=== PATIENT | male | born 1950 | race Caucasian/White ===

== ENCOUNTER 2018-06-12 13:41 | Inpatient (IN) | payer MEDICARE ==
[~2018-06-12 13:41] MED LIST: ISOVUE-370 76%-LOCM 1 ML ONE
[2018-06-12 14:13] LABS: #Basophils 0.1 thou/uL (0.0-0.2); #Eosinphils 0.3 thou/uL (0.0-0.7); #Lymphocytes 1.7 thou/uL (1.20-3.40); #Neutrophils 4.6 thou/uL (1.40-6.50); %Lymphocytes 21.6 % (21.0-51.0); %Monocytes 13.5 % (0.0-10.0); %Neutrophils 59.9 % (42.0-75.0); Hemoglobin 13.1 g/dL (14.0-18.0); Mean Corpuscular HGB CONC 33.3 g/dL (32.0-36.0); Mean Corpuscular Hemoglobin 33.2 pg (27.0-31.0); Mean Corpuscular Volume 99.7 fL (78.0-98.0); Mean Platelet Volume 6.1 fL (7.4-10.4); Platelet Count 335 thou/uL (130-400); RBC Distribution Width 12.2 % (11.5-14.5); Red Blood Cell (RBC) Count 3.95 mill/uL (4.70-6.10); White Blood Cell (WBC) Count 7.7 thou/uL (4.8-10.8)
[2018-06-12 14:20] LABS: PTT 24.2 SEC (22.9-36.1); Prothrombin Time 14.1 SEC (12.0-14.7)
[2018-06-12 14:21] LABS: INR-International Normal Ratio 1.1
--- NOTE | 2018-06-12 14:21 | CT ---
NONCONTRAST CT HEAD: Date: 06/12/18 HISTORY: Stroke alert, slurred speech. COMPARISON: None available. FINDINGS: There is a punctate low density focus in the right lentiform nucleus, likely related to tiny lacunar infarction of indeterminate age. There is no evidence of an cortical infarction, hemorrhage, mass eff ect, or midline shift. There is mild cerebral and cerebellar volume loss. Ventricular system is aide l in size, shape, and position for the degree of sulcal atrophy. There is opacification of multiple ethmoidal air cells bilaterally with mild mucosal thickening. Mast oid air cells are clear. Calvarial structures are intact. IMPRESSION: 1. No acute intracranial abnormalities demonstrated. 2. Tiny lacunar infarction right lentiform nucleus of indeterminate age. 3. Cerebral and cerebellar volume loss. Above findings discussed with Dr. Phillips in the emergency department on 06/12/18 at 1353 hours. CODE CR. POS: DAVON
[2018-06-12 14:27] LABS: ALT (SGPT) 13 U/L (8-55); AST (SGOT) 20 U/L (5-34); Albumin 3.6 g/dL (3.4-4.8); Alkaline Phosphatase 61 U/L (40-150); Anion Gap 11 mmol/L (10-20); BUN (Urea Nitrogen) 8 mg/dL (8.4-25.7); Bilirubin, Total 0.7 mg/dL (0.2-1.2); Calc. Creatinine Clearance 0 mL/min (70-130); Calcium 8.9 mg/dL (7.8-10.44); Carbon Dioxide 22 mmol/L (23-31); Chloride 97 mmol/L (98-107); Estimated GFR-MDRD Greater than 90; Globulin 2.8 g/dL (2.4-3.5); Glucose 96 mg/dL (80-115); Potassium 4.4 mmol/L (3.5-5.1); Protein, Total 6.4 g/dL (5.8-8.1); Sodium 126 mmol/L (136-145)
[2018-06-12 14:30] LABS: CKMB 0.8 ng/mL (0-6.6); Troponin I Less than 0.010 ng/mL (< 0.028)
--- NOTE | 2018-06-12 15:06 | CT ---
CT ANGIOGRAM OF HEAD AND NECK: Date: 06/12/18 HISTORY: Stroke alert. Slurred speech, starting at 11:30 this morning. COMPARISON: None. TECHNIQUE: CT angiogram of the head and neck performed in the axial plane. Three-dimensional reformatted images are submitted for interpretation. FINDINGS: Postcontrast head CT demonstrates preservation of cortical bundy-white matter differentiation. Chronic small vessel ischemic changes of the white matter are identified. There is mild mucosal thickening o f the paranasal sinuses and ethmoid air cells. Adequate mastoid air cell aeration. Bilateral ocular lenses are appropriately located. Both globes are intact. Retrobulbar fat is preserv ed. Symmetric attenuation of the optic nerves and ocular rectus muscles. Aerodigestive tract is patent. No mucosal abnormality. Midline fatty raphe of the tongue is preserved . Symmetric attenuation of the submandibular and parotid glands. Symmetric attenuation of sternocleidom astoid muscles. Thyroid gland is unremarkable. No evidence of lymphadenopathy by size criteria. Central spinal canal is patent. Cervical spine vertebral body height is maintained. There is no fract ure. There is multilevel degenerative disc disease with loss of disc space height, osteophyte formati on, and end plate sclerosis. Evaluation is limited by technique. Extensive emphysematous changes of lung apices. Upper mediastinum is unremarkable. CT ANGIOGRAM NECK: Visualized aorta has a normal appearance. There is some atherosclerosis of the aortic arch. There is a common origin of the left internal carotid artery and right innominate artery. Right Carotid: The right common carotid artery has appropriate enhancement and luminal diameter. There appears to be short segment severe stenosis involving the proximal right internal carotid artery. The degree of st enosis is difficult to assess due to motion degradation. The remainder of the right internal carotid artery appears to be patent. Left Carotid: The origin of the left carotid artery is unremarkable. There is mild atherosclerosis in the left comm on carotid artery and carotid bifurcation. No significant stenosis based upon NASCET criteria. Note, evaluation of the proximal left internal carotid artery is limited by motion. Both subclavian arteries are unremarkable. Both cervical vertebral arteries are patent throughout the ir course in the neck. The left vertebral artery is dominant. There is mild to moderate narrowing of the origin and proximal right vertebral artery. CT ANGIOGRAM HEAD: The intracranial internal carotid arteries have symmetric enhancement and luminal diameter. Atheroscl erosis without significant stenosis involving both cavernous segments. Anterior Circulation: The right A1 segment is diminutive. Nevertheless, both A2 segments are symmetric. Bilateral M1 segmen ts are patent. However, there is some nodularity and short segment mild to moderate narrowing of the mid right M1 segment. The overall MCA branches are symmetric. Posterior Circulation: There appears to be possible fenestration versus duplication of the intracranial portion of the left internal carotid artery. Both PICA artery origins are unremarkable. Basilar artery has appropriate en hancement and diameter. The left and right P1 segments have appropriate enhancement and luminal diame ter. IMPRESSION: 1. Limited evaluation of both cervical carotid arteries due to motion. Nevertheless, there appears t o be significant stenosis based upon NASCET criteria involving the proximal right internal carotid ar jeri. 2. Nodularity and irregularity involving the mid right M1 segment. Results of study discussed with Dr. Michael on 06/12/18 at 1416 hours. CODE CR. POS: DAVON
[2018-06-12 16:06] LABS: Bilirubin Negative (Negative); Blood, Urine Small (Negative); Clarity CLEAR (Clear); Glucose, Urine (Dipstick) Negative (Negative); Leukocyte Negative (Negative); Nitrite Negative (Negative); Protein, Urine (Dipstick) Negative (Neg-Trace); Urobilinogen 0.2 mg/dL (0.2-1.0)
[2018-06-12 16:07] LABS: Bacteria/HPF None Seen HPF (None Seen); Hyaline Casts/LPF 0-3 HYALINE CAST LPF (0-3 Hyaline); Squamous Epithelial None Seen HPF (0-3); WBC/HPF None Seen HPF (0-3)
[2018-06-12 16:10] LABS: Specific Gravity, Urine 1.049 (1.002-1.036)
[2018-06-12] MEDS ORDERED: Acetaminophen 650 MG Suppository PR PRN (16:22)
[2018-06-12] MEDS ORDERED: Labetalol HCl 100 MG/20 ML VIAL SLOW IVP PRN (16:22)
[2018-06-12] MEDS ORDERED: Bisacodyl 5 MG TAB PO PRN (16:22)
[2018-06-12] MEDS ORDERED: hydrALAZINE 20 MG/ML VIAL SLOW IVP PRN (16:22)
--- NOTE | 2018-06-12 17:26 | HP ---
PRIMARY CARE PHYSICIAN: None. CHIEF COMPLAINT: Blurry vision. HISTORY OF PRESENT ILLNESS: Mr. Alvarado is a pleasant 67-year-old gentleman who was seen at [facility] on 06/12/2018 following transfer from [facility]. He reports that he has a past medical history of hypertension. He also reports that he has a history of abdominal aortic aneurysm. More recently, he set up care with Dr. Gonzalez from Cardiology. [place] He was driving into town today when he had blurred vision. He reports that it was accompanied by floaters in both eyes. The entire episode appears to have lasted about 30 minutes . He then drove to Urgent care clinic. He was found to have systolic blood pressure of greater than 200. He was then sent over to the emergency room. He denies any nausea. He reports dull global headache, but is unable to characterize it further. He denies any fevers or chills. He denies any chest pain. By the time I saw him, he was asymptomatic. REVIEW OF SYSTEMS: All other systems reviewed and found to be negative. PAST MEDICAL HISTORY: Abdominal aortic aneurysm, dyslipidemia, gastroesophageal reflux disease, hype rtension. PAST SURGICAL HISTORY: Right hand surgery. SOCIAL HISTORY: Patient drinks 4 or 5 beers every day. He denies any current tobacco use or recreat ional drug use. FAMILY HISTORY: He denies any family history of stroke. CODE STATUS: I discussed his code status. He is DNR. ALLERGIES: BACTRIM-DS, and BENICAR. CURRENT MEDICATIONS: Zantac 150 mg daily, metoprolol succinate 50 mg daily, Zyrtec, dose unknown. PHYSICAL EXAMINATION: GENERAL: Mr. Alvarado is awake and alert, not in acute distress. VITAL SIGNS: Blood pressure is 116/81, pulse 65, respiratory rate 20, and oxygen saturation 100% on oxygen by facemask. Earlier, he had blood pressure of 194/97, pulse 74, respiratory rate 16, and oxy gen saturation 97% on room air. EYES: No scleral icterus. No conjunctival pallor. ENT: Moist mucous membranes, no oropharyngeal erythema or exudates. NECK: Supple, nontender. Trachea is midline. RESPIRATORY: Accessory muscles of breathing are not active. Chest wall movements are symmetric bila terally. LUNGS: Clear to auscultation without wheeze, rhonchi or crepitations. CARDIOVASCULAR: S1 and S2 are heard, regular. Peripheral pulses palpable. No carotid bruit, no per icardial rub. ABDOMEN: Soft, nontender, bowel sounds heard. NEUROLOGIC: Cranial nerves II-XII intact. No focal motor or sensory deficits. Power is 5/5 in all 4 extremities. Cerebellar exam unremarkable. Deep tendon reflexes 2+, plantars downgoing bilaterall y. MUSCULOSKELETAL: Power is 5/5 in all 4 extremities. SKIN: No rashes or subcutaneous nodules. LYMPHATIC: No cervical lymphadenopathy. PSYCHIATRIC: Normal affect. Patient is oriented to person, place, and time. DATABASE: Mr. Alvarado's labs and investigations were reviewed. I reviewed his electrocardiogram, wh ich shows normal sinus rhythm, no ST changes to suggest an acute coronary syndrome. I also reviewed his noncontrast CT scan of brain, which shows a tiny lacunar infarction in the right lentiform nucleu s of indeterminate age. He also had CT angiography of [place] and neck, which showed signif icant stenosis involving the proximal right internal carotid artery and nodularity and irregularity i nvolving the mid right M1 segment. This was a limited evaluation due to motion. He has normal white count, macrocytic anemia with hemoglobin 13.1, normal platelet count, INR 1.1, decreased sodium of 1 26, normal potassium, normal creatinine, normal LFTs, normal troponin I and urinalysis positive for s mall amount of blood. ASSESSMENT AND PLAN: Mr. Alvarado is a pleasant 67-year-old gentleman who was seen at [facility] on 06/12/2018. His problem list includes: 1. Vision changes. Mr. Alvarado is presenting with vision changes. He will be admitted to [facility] for further management, including ophthalmology consult as well as a stroke workup including MRI and 2D echocardiogram. He will be started on aspirin. 2. Carotid stenosis: Cardiovascular Surgery is being consulted for opinion and help with management . 3. Hypertensive urgency: Patient appears to have had hypertensive urgency at [facility]gent Care [facility]. I will start him on p.r.n. antihypertensives. 4. Hyponatremia: Etiology is unclear. We will provide intravenous normal saline and recheck sodium level. 5. Hypertension: Monitor vital signs, titrate antihypertensives as needed. LEVEL OF RISK: High. LEVEL OF COMPLEXITY: High.
--- NOTE | 2018-06-12 17:28 | MRI ---
NONCONTRAST MRI BRAIN: 06/12/2018 HISTORY: Headache, blurred vision, and slurred speech, starting at around 1130 hours today. Symptoms have res olved. TIA. FINDINGS: There is mild increased FLAIR and T2 weighted signal intensity seen within the periventricular white matter, which is nonspecific but likely reflective of mild chronic small vessel ischemic changes. Th ere is no evidence of an acute infarction. There is mild cerebral and cerebellar volume loss. The ventricular system is normal in size, shape, and position for the degree of sulcal atrophy. Grossly appropriate flow voids are demonstrated at the base of the brain; however, CTA of the head wo uld better assess the intracranial circulations, and that examination did demonstrate short segment a nd mild to moderate narrowing of the mid right M1 segment of the right middle cerebral artery, with i rregularity present. Mucosal thickening is present within the bilateral ethmoid air cells, maxillary antra, and sphenoid s inus. The frontal sinuses are not pneumatized. Mastoid effusions are seen bilaterally. IMPRESSION: 1. No acute intracranial abnormalities demonstrated. 2. Mild chronic small vessel ischemic changes. 3. Cerebral and cerebellar volume loss. 4. Diffuse sinus disease. POS: DAVON
[2018-06-12 19:28] VITALS: BMI 23.2
[2018-06-12] MEDS: Sodium Chloride 0.9% 1,000 ML IV SCH (21:07)
[2018-06-12] MEDS: Atorvastatin Calcium 20 MG TAB PO SCH (21:08)
[2018-06-12] MEDS: Acetaminophen 325 MG TAB PO PRN (23:44)
[2018-06-13 06:10] LABS: Anion Gap 11 mmol/L (10-20); BUN (Urea Nitrogen) 6 mg/dL (8.4-25.7); Calc. Creatinine Clearance 96 mL/min (70-130); Calcium 8.8 mg/dL (7.8-10.44); Carbon Dioxide 22 mmol/L (23-31); Cardiac Risk 4.2 (Less than 4.5); Chloride 102 mmol/L (98-107); Cholesterol 195 mg/dl (< 200 Desired); Estimated GFR-MDRD Greater than 90; Glucose 88 mg/dL (80-115); HDL Cholesterol 46 mg/dL (>60 Neg Risk); LDL Cholesterol, Calculated 130 mg/dL; Sodium 131 mmol/L (136-145); Triglycerides 93 mg/dL (Less than 150)
[2018-06-13] MEDS ORDERED: Amlodipine 5 MG TAB PO SCH (09:00)
[2018-06-13] MEDS: Aspirin 325 mg Enteric Coated Tablet PO SCH (09:50)
[2018-06-13] MEDS: Enoxaparin Sodium 40 MG/0.4 ML SYRINGE SC SCH (09:50)
[2018-06-13] MEDS: Sodium Chloride 0.9% 1,000 ML IV SCH (09:50)
[2018-06-13 11:47] LABS: Band 2 % (5-11); Eosinophils 6 % (0-10); Hemoglobin 13.3 g/dL (14.0-18.0); Hypochromia SLIGHT = 6-15 cells (100X) (0-5/hpf); Lymphocytes 34 % (21-51); MDiff Complete? YES; Mean Corpuscular HGB CONC 35.3 g/dL (32.0-36.0); Mean Corpuscular Hemoglobin 34.8 pg (27.0-31.0); Mean Corpuscular Volume 98.7 fL (78.0-98.0); Mean Platelet Volume 6.4 fL (7.4-10.4); Microcytosis SLIGHT = 6-15 cells (100X) (0-5/hpf); Monocytes 14 % (0-10); Neutrophil 44 % (42-75); PLT Morphology Comment Appears Adequate; Platelet Count 335 thou/uL (130-400); Polychromasia SLIGHT = 2-3 cells (100X) (0-2/hpf); RBC Distribution Width 12.1 % (11.5-14.5); Red Blood Cell (RBC) Count 3.81 mill/uL (4.70-6.10); White Blood Cell (WBC) Count 5.3 thou/uL (4.8-10.8)
--- NOTE | 2018-06-13 12:41 | PDOC.PN ---
- Subjective Encounter Start Date: 06/13/18 Encounter Start Time: 12:39 Subjective: visual disturbance, dizziness resolved - Objective Resuscitation Status: Resuscitation Status DNR:Do Not Resuscitate MAR Reviewed: Yes Vital Signs & Weight: Vital Signs (12 hours) Temp Pulse Resp BP BP Pulse Ox 06/13/18 11:55 97.8 F 67 16 167/80 H 96 06/13/18 11:43 167/80 H 06/13/18 08:11 97.9 F 60 20 166/82 H 166/82 H 95 06/13/18 04:00 98.4 F 60 16 145/73 H 93 L Weight Weight 160 lb 8 oz I&O: 06/12/18 06/13/18 06/14/18 06:59 06:59 06:59 Intake Total 240 Balance 240 Result Diagrams: 06/13/18 05:38 06/13/18 05:38 Additional Labs: Accuchecks 06/12/18 13:48 POC Glucose 97 Radiology Reviewed by me: No (no sig carotid stenosis) Phys Exam - Physical Examination Neck: no JVD Respiratory: clear to auscultation bilateral Cardiovascular: RRR, no significant murmur Gastrointestinal: soft, non-tender, positive bowel sounds Musculoskeletal: no edema Neurological: non-focal Dx/Plan (1) Visual disturbance Code(s): H53.9 - UNSPECIFIED VISUAL DISTURBANCE Status: Acute (2) Dizziness Code(s): R42 - DIZZINESS AND GIDDINESS Status: Acute (3) Hypertensive urgency Code(s): I16.0 - HYPERTENSIVE URGENCY Status: Acute (4) Hyponatremia Code(s): E87.1 - HYPO-OSMOLALITY AND HYPONATREMIA Status: Acute - Plan cont metoprolol, add amlodipine -: cont ASA -: follow clinically * .
[2018-06-13] MEDS: Acetaminophen 325 MG TAB PO PRN (13:36)
--- NOTE | 2018-06-13 13:44 | ULT ---
CAROTID DOPPLER: DATE: 06/13/18. PROVIDED CLINICAL HISTORY: Transient visual disturbance. FINDINGS: Kolb scale and color Doppler sonography with spectral analysis was performed of the extracranial cotton tid system bilaterally. Atherosclerotic plaque is seen involving the proximal left internal carotid artery and minimally involving right carotid bulb. There is no evidence for a hemodynamically signif icant internal carotid artery stenosis by peak systolic velocity by ratio criteria. Antegrade flow i s seen in the vertebral arteries. IMPRESSION: No sonographic evidence for a hemodynamically significant internal carotid artery stenosis. POS: DAVON
[2018-06-13] MEDS: Famotidine 20 MG TAB PO SCH (18:00)
[2018-06-13] MEDS: Atorvastatin Calcium 20 MG TAB PO SCH (20:22)
--- NOTE | 2018-06-13 23:16 | CON ---
DATE OF CONSULTATION: 06/12/2018 REQUESTING PHYSICIAN: Terri Phillips D.O. CHIEF COMPLAINT: Binocular visual disturbance and dizziness. HISTORY OF PRESENT ILLNESS: The patient is a 67-year-old man with hypertension who recently has cons olidated his health care to the [facility] area after having previously been followed in [place], [place]. He reports that while driving his car, he experienced some visual disturbances with se nse of dim vision in his eyes. He covered up one eye then the other and it did not really seem to ma ke any difference about what he was seeing suggesting it is a binocular defect. In talking with him, he describes in essence, his total field of view, becoming dim, but then began feeling dizzy. He pu lled over and eventually made his way to a friend's business who then took him to an EMS facility and by his description, his blood pressure was about 200/100. The patient describes a recent change in his blood pressure medications, but otherwise has not had any issues of note recently. PAST MEDICAL HISTORY: Apparently is also significant for an abdominal aortic aneurysm, dyslipidemia, GE reflux disease. HOME MEDICATIONS: Lopressor, Zyrtec, and Zantac. ALLERGIES: He reports allergies to OLMESARTAN and BACTRIM. SOCIAL HISTORY: He does not smoke, but he drinks 4-5 beers a day. FAMILY HISTORY: Negative for any history of stroke. REVIEW OF SYSTEMS: Negative for any monocular eye symptoms, negative for any facial speech or extrem ity symptoms consistent with transient ischemic attack. Negative for any chest pain. Negative for a ny shortness of breath. PHYSICAL EXAMINATION: GENERAL: He is in no distress VITAL SIGNS: Currently, his heart rate 66, blood pressure 172/85, temperature 98.6, 5 foot and 9 inc hes and weighs 160.5 pounds. HEENT: He has no xanthelasma. NECK: No JVD, no carotid bruits. CHEST: Clear to auscultation. He has a regular rate and rhythm. ABDOMEN: Soft and nontender. EXTREMITIES: He has easily palpable radial pulses. I have difficulty appreciating pedal pulses. He had no clubbing, cyanosis or edema. NEUROLOGIC: Grossly nonfocal with extremity strength grossly normal. Cranial nerves II-XII grossly normal. LABORATORY DATA AND IMAGING DATA: Showed white count 7.7, hemoglobin 13.1, hematocrit 39.4, platelet s 335,000. PT was 14.1 and INR of 1.1. Sodium is 126, potassium 4.4, chloride 97, CO2 22, BUN 8, cr eatinine 0.77, glucose 96, calcium 8.9, bilirubin 0.7, alkaline phosphatase 61, AST 20, ALT 13, prote in 6.4, albumin 3.6, troponin was less than 0.01. Urinalysis is clean. His head CT showed no acute abnormalities as did his MRI. CT angio showed plaque in his carotids with some suggestion of some mi ld stenosis on the order of 30%-40% on the left side. On the right side, there was heavy plaque, but there was some motion artifact making it difficult to assess residual lumen at about the bulb and or igin of the internal carotid. IMPRESSION AND RECOMMENDATIONS: I do not think that the symptoms that he experienced represent manif estation of carotid disease, but there is a strong enough suggestion of carotid disease that is proba alma worth pursuing a little bit further. I would start with a carotid ultrasound.
--- NOTE | 2018-06-14 06:45 | CON ---
DATE OF CONSULTATION: 06/13/2018 REFERRING PROVIDER: Bryn Mehta M.D. REASON FOR CONSULTATION: Visual changes and dizziness. HISTORY OF PRESENT ILLNESS: Mr. Alvarado is a pleasant 67-year-old male who has been consulted for evaluation of vision changes and dizziness. The patient reports that he was driving and had a sudden onset of blurry vision. He also started noticing floaters in both eyes. He tried to close either eye and the floater would be present in the open eye. He had stopped the car and got out of the car, at that time noticed dizziness and some difficulty with balance; however, he is still able to walk upright without any fall. He did not have any headache, chest pain, palpitation, numbness, tingling , and weakness in extremities. There are no changes in his speech at that time. He had gone to Urgent Care Clinic where his blood pressure was noted to be 200/100. He was advised to come to [facility]. He has been admitted for further workup. For these symptoms, he is being admitted to the hospital. He reports of resolution of his symptoms since being admitted to hospital. PAST MEDICAL HISTORY: Significant for abdominal aortic aneurysm, dyslipidemia, GERD, and hypertension. PAST SURGICAL HISTORY: Significant for right hip surgery. SOCIAL HISTORY: He drinks 4-5 beers on a daily basis. He denies smoking cigarettes and using illicit drugs. FAMILY HISTORY: Noncontributory. CURRENT MEDICATIONS: Please review MAR. ALLERGIES: Include BACTRIM and BENICAR. REVIEW OF SYSTEMS: As mentioned above in the HPI, otherwise negative. PHYSICAL EXAMINATION: VITAL SIGNS: Blood pressure is 162/74, pulse of 61, temperature of 97.4, respirations of 20, O2 sats of 98% on room air. GENERAL: Well-developed, well-nourished male in no apparent distress. RESPIRATORY: Clear to auscultation bilaterally. CARDIOVASCULAR: Regular rate and rhythm. NEUROLOGIC: Mental status: The patient is awake, alert, oriented x3. Speech and language: Fluent speech. Cranial nerves: Pupils are 3 mm and reactive. Visual alvarenga are intact. External muscles are intact. No nystagmus noted. Face is symmetric. Tongue and uvular are midline. Motor exam showed normal tone and bulk with 5/5 strength in both upper and lower extremities. Sensory: Sensation is intact and symmetric. Deep tendon reflexes, 2+ reflexes in both upper and lower extremities. Babinski: Plantar responses flexion bilaterally. Coordination intact to [id number] tapping bilaterally. LABORATORY DATA: Reviewed, which included CBC, CMP, urinalysis, which is significant for hemoglobin 13.3, hematocrit 37.7. Sodium of 131, otherwise normal. His lipid profile showed total cholesterol 195, LDL of 130, HDL of 46, and triglycerides of 93. IMAGING STUDIES: MRI brain without contrast was reviewed, which showed no acute intracranial abnormality. Carotid Doppler results were reviewed, which showed no hemodynamically significant stenosis. IMPRESSION: 1. Transient episode of blurry vision, likely hypertensive urgency. 2. Malignant hypertension. ASSESSMENT AND PLAN: Mr. Alvarado is a pleasant 67-year-old male, who presented with an episode of blurry vision that lasted approximately 30 minutes. His blood pressure is noted to be significantly elevated, this would likely suggest hypertensive urgency. I have reviewed his MRI brain and carotid Doppler results which are unremarkable. I agree with the lowering blood pressure and adjusting his anti-hypertensive medications. We will continue with aspirin 325 mg daily for secondary stroke prevention. No further neurological workup needed from my standpoint. Thank you for the consultation. REECE
--- NOTE | 2018-06-14 07:19 | PDOC.PN ---
- Subjective Encounter Start Date: 06/14/18 Encounter Start Time: 07:17 Subjective: N/V, flushing, suspects RCN to iv hydralazine - Objective Resuscitation Status: Resuscitation Status DNR:Do Not Resuscitate MAR Reviewed: Yes Vital Signs & Weight: Vital Signs (12 hours) Temp Pulse Resp BP Pulse Ox 06/14/18 05:53 67 06/14/18 04:00 98.2 F 67 18 169/82 H 95 06/14/18 00:00 98.0 F 65 18 159/80 H 94 L 06/13/18 20:15 98.5 F 65 18 06/13/18 20:00 98.5 F 65 18 175/81 H 95 Weight Weight 160 lb 8 oz I&O: 06/13/18 06/14/18 06/15/18 06:59 06:59 06:59 Intake Total 602 Balance 602 Result Diagrams: 06/13/18 05:38 06/13/18 05:38 Phys Exam - Physical Examination Neck: no JVD decreased BS, non-focal exam Cardiovascular: RRR, no significant murmur tachy Gastrointestinal: soft, positive bowel sounds Musculoskeletal: no edema Dx/Plan (1) Visual disturbance Code(s): H53.9 - UNSPECIFIED VISUAL DISTURBANCE Status: Acute (2) Dizziness Code(s): R42 - DIZZINESS AND GIDDINESS Status: Acute (3) Hypertensive urgency Code(s): I16.0 - HYPERTENSIVE URGENCY Status: Acute (4) Hyponatremia Code(s): E87.1 - HYPO-OSMOLALITY AND HYPONATREMIA Status: Acute - Plan atat cxr, bmp, trop, ABG * .
[2018-06-14 07:36] LABS: CO2 Tension 28.4 mmHg (35.0-45.0); O2 Tension (PaO2) 93.8 mmHg (> 80.0); pH, Arterial 7.51 (7.35-7.45)
[2018-06-14 07:37] LABS: Actual Bicarbonate (HCO3a) 21.9 mEq/L (22-28); Base Excess (BEa) 0.1 mEq/L (-2.0 to +3.0); Calcium, Ionized 1.17 mmol/L (1.12-1.30); Carboxyhemoglobin (COHb) 1.7 gm% (0.0-3.0); Hemoglobin (Hb) 14.7 g/dL (14.0-18.0); Potassium - ABG Lab 3.93 mmol/L (3.70-5.30); Puncture Site LRA
--- NOTE | 2018-06-14 07:45 | RAD ---
CHEST 1 VIEW: HISTORY: This is a 67-year-old male with shortness of breath. FINDINGS: Monitor leads overlie the chest. Heart size is within normal limits. Biapical pleural thickening an d bullous changes. No confluent pneumonia, overt edema, or pleural effusion. IMPRESSION: No acute intrathoracic disease. Biapical pleural thickening and bullous changes. POS: OFF
[2018-06-14 07:51] LABS: Anion Gap 12 mmol/L (10-20); BUN (Urea Nitrogen) 5 mg/dL (8.4-25.7); Calc. Creatinine Clearance 92 mL/min (70-130); Calcium 9.3 mg/dL (7.8-10.44); Carbon Dioxide 22 mmol/L (23-31); Chloride 101 mmol/L (98-107); Estimated GFR-MDRD Greater than 90; Glucose 91 mg/dL (80-115); Sodium 131 mmol/L (136-145)
[2018-06-14 07:57] LABS: Troponin I Less than 0.010 ng/mL (< 0.028)
[2018-06-14] MEDS: Amlodipine 5 MG TAB PO SCH (09:18)
[2018-06-14] MEDS: Loratadine 10 MG TAB PO SCH (09:18)
[2018-06-14] MEDS: Enoxaparin Sodium 40 MG/0.4 ML SYRINGE SC SCH (09:19)
[2018-06-14] MEDS: Aspirin 325 mg Enteric Coated Tablet PO SCH (09:19)
[2018-06-14] MEDS ORDERED: Lorazepam 2 MG/ML VIAL SLOW IVP PRN (15:38)
--- NOTE | 2018-06-14 15:44 | PDOC.EVN ---
Event Note - Event Note Event Note: hallucinating, shaky- alcohol withdrawal. start banaana bag iv and lorezapam iv prn. change to full admit
[2018-06-14] MEDS ORDERED: Multivitamins, Adult 10 ML, Folic Acid 1 MG, Thiamine HCl 100 MG in Dextrose 5 %-0.45 %... IV SCH (16:00)
[2018-06-14] MEDS: Acetaminophen 325 MG TAB PO PRN (16:36)
[2018-06-14] MEDS: Atorvastatin Calcium 20 MG TAB PO SCH (20:03)
[2018-06-14] MEDS: Famotidine 20 MG TAB PO SCH (20:03)
[2018-06-15 07:37] VITALS: BP 140/67; TEMP 98.1
[2018-06-15] MEDS: Loratadine 10 MG TAB PO SCH (08:21)
[2018-06-15] MEDS: Enoxaparin Sodium 40 MG/0.4 ML SYRINGE SC SCH (08:21)
[2018-06-15] MEDS: Amlodipine 5 MG TAB PO SCH (08:22)
[2018-06-15] MEDS: Aspirin 325 mg Enteric Coated Tablet PO SCH (08:22)
--- NOTE | 2018-06-15 09:09 | DIS ---
TRANSFER OF CARE NOTE PRIMARY CARE PROVIDER: She has seen Dr. Gonzalez, Cardiology. FINAL DIAGNOSES: 1. Transient ischemic attack. 2. Hypertensive urgency 3. Alcohol abuse. 4. Hyponatremia. DISCHARGE MEDICATIONS: Thiamine 100 mg a day, amlodipine 5 mg a day, Lipitor 20 mg a day, metoprolol XL 50 one a day, aspirin 325 mg a day, Zantac 150 mg p.o. at bedtime. ALLERGIES: SULFAMETHOXAZOLE, TRIMETHOPRIM, OLMESARTAN. DIET: Heart healthy. PENDING AT THE TIME OF DISCHARGE: Nothing. CODE STATUS: Full. HOSPITAL COURSE: The patient was admitted to the hospital after transfer from Urgent Care with visua l blurring. He had marked elevation of his blood pressure. He had a mild hyponatremia. Brain CT wa s unrevealing for intracranial abnormality, possible old right lentiform lacunar infarct. CT angiogr aphy suggested a right carotid stenosis. Carotid Doppler failed to confirm that. Brain MRI showed n o acute process. The patient was seen in consultation by Dr. Valentine Carvalho, Neurology, Dr. Chevy cordero, Cardiovascular Surgery, Dr. Jay Cruz, Ophthalmology. The patient's blood pressure was co ntrolled. On 06/14/2018 he exhibited evidence of alcohol withdrawal with agitation and hallucination s and was treated with lorazepam and vitamins. Today he is alert, oriented, and cooperative and plea christopher. He is desirous of going home. His blood pressure is adequately controlled. His sodium has co me up from 126 to 131. I suspect it is alcohol related. His liver function tests are normal. His r enal tests are unremarkable. His blood count shows only a very minimal anemia at 13.1 to 13.3 with m icrocytic indices consistent with his alcohol use. He has been discharged. He has had no procedures. He has been advised to get a PCP. He is being di scharged home. He has been advised to see a PCP in 1 week for followup. He is discharged on thiamin e for his alcohol related problems. Since he has a microvascular disease with transient visual distu rbance he is being treated as a TIA with statins and aspirin. Prescriptions have been written. Elo l signs are stable today with blood pressure 140/67, 132/66 yesterday. He has been told he needs irma quent follow up for his hypertension, etc.
== END 2018-06-15 10:33 | disposition home or self-care (01) | DRG 69 ==
LOC: ERS 13:41 → ERHOLD 16:18 → 2SE 19:00 → OBSVTOIN 06-14 15:29
PROVIDERS: ADMIT Internal Medicine; ATTEND Internal Medicine
DX: G45.9 Transient cerebral ischemic attack, unspecified (principal); E87.1 Hypo-osmolality and hyponatremia; F10.239 Alcohol dependence with withdrawal, unspecified; I10 Essential (primary) hypertension; E78.5 Hyperlipidemia, unspecified; K21.9 Gastro-esophageal reflux disease without esophagitis; Z66 Do not resuscitate; I16.0 Hypertensive urgency; I65.29 Occlusion and stenosis of unspecified carotid artery; F10.10 Alcohol abuse, uncomplicated; Z88.2 Allergy status to sulfonamides
CPT/HCPCS: 36415; 36416; 70450; 70496; 70498; 70551; 71045; 80048; 80053; 80061; 81003; 81015; 82553; 82805; 84484; 85025; 85610; 85730; 93005; 93306; 93880; 96360; A4216; J0360; J1650; J2060; J3411; J7042

== ENCOUNTER 2019-10-23 18:35 | Observation (INO) | payer MEDICARE ==
[2019-10-23] MEDS ORDERED: Aspirin Chewable 81 MG TAB ONE ×2 (22:07→22:08)
[2019-10-23] MEDS ORDERED: Ondansetron PF 4 MG/2 ML Vial IVP PRN (23:17)
[2019-10-23] MEDS ORDERED: Acetaminophen 325 MG TAB PO PRN (23:17)
[2019-10-24 00:14] VITALS: BMI 21.9
--- NOTE | 2019-10-24 00:35 | HP ---
PRIMARY CARE PHYSICIAN: MERLE Park CHIEF COMPLAINT: Transferred from [facility] for altered mental status evaluation. HISTORY OF PRESENT ILLNESS: A 69-year-old male with past medical history of epilepsy with breakthrough seizure around , restarted on Dilantin 100 mg t.i.d., hypertension, dyslipidemia, abdominal aortic aneurysm and daily beer use, who was referred to [facility] by primary care physician's office after the patient showed up without an appointment with concerns for altered mental status and confusion. In the emergency room, NIH Stroke Scale was 0/42. Noncontrast head CT was unremarkable. CBC, chemistries, and the Dilantin level were also unremarkable. Furthermore, an abdominal sonogram suggested a 4.0 cm fusiform abdominal aortic aneurysm without atherosclerosis or other acute abnormalities. The patient was transferred to [facility] for further evaluation and recommended observation and admission. At bedside, the patient is awake, alert, oriented to person, place, year, and month. He has difficulty in speech and acknowledges for the past 4 to 5 days, feeling unsteady and dizzy, and having broken speech. He states his symptoms all go back to time, at which point he had a seizure. He has poor awareness of how much time has elapsed since that time, but reports a progression of symptoms. He feels that his voice and speech has changed in the past week. He feels that his eyeballs are bothersome. He has difficulty in explaining his symptoms. He is unclear how many of his symptoms are new versus old, as he cannot differentiate how much time has elapsed since and that is where the most recent holiday lies. He denies any focal neurological deficits. He notes poor oral intake for the past 4 to 5 days. He lives at home alone. His last beer use was 2 days ago and drinks approximately 4 to 5 daily beers. He denies any tremors, hallucinations, agitation. Much further detail of the history could not be obtained. PAST MEDICAL HISTORY: Epilepsy with breakthrough seizure in August 2019, initiated on Depakote, TIA, hypertension, dyslipidemia, GERD, abdominal aortic aneurysm, documented memory problems, unspecified. PAST SURGICAL HISTORY: Right hand surgery. SOCIAL HISTORY: The patient drinks 4 to 5 beers daily. He denies any current tobacco use. Admits to tobacco use previously. Denies any illicit drug use. He does not use any assistive devices, but has been holding onto the wall of his home recently. ALLERGIES: DOCUMENTED, BACTRIM DS AND BENICAR. REVIEW OF SYSTEMS: Pertinent positives as per HPI. Remainder of review of systems negative. MEDICATIONS: Reviewed as per admission medication reconciliation. FAMILY HISTORY: The patient denies any chronic medical comorbidities in family members. PHYSICAL EXAMINATION: VITAL SIGNS: Temperature maximum, afebrile; pulse 66, blood pressure 144/77, oxygen 99% on room air, and respirations 16 to 18. GENERAL APPEARANCE: An elderly male, who is awake, alert, oriented with broken speech and poor historian. HEENT: Normocephalic, atraumatic. No facial asymmetry. Pupils are equally round. Extraocular muscles are intact. Flat affect. Moist mucous membranes. NECK: Supple. CARDIOVASCULAR: S1, S2. Regular rate and rhythm. No harsh murmurs. No chest wall tenderness to palpation. LUNGS: Bilateral equal air entry on anterior auscultation. Symmetrical chest expansion. No wheezing or rales. ABDOMEN: Soft, nontender, nondistended. EXTREMITIES: No edema, cyanosis, or deformities noted. Chronic skin changes overlying peripheral extremities and trunk noted. SKIN: Warm to touch without rash, pallor, or abrasion. NEUROLOGIC: On evaluation, no facial asymmetry. Symmetrical smile. Symmetrical muscle facial expression. No drift of bilateral upper or lower extremities. 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 Sensation intact throughout. No evidence of dysmetria appreciated. The patient does exhibit broken speech and is noted to have memory recall problems. PSYCHIATRIC: The patient is awake, alert, not agitated, not hallucinating, with notable broken speech and notable forgetfulness. LABORATORY DATA: Laboratory values from outside facility reviewed. CMP unremarkable. Cardiac biomarker negative x1. Lipid profile with LDL of 110. CBC with diff unremarkable. Coagulation profile unremarkable. IMAGING: Abdominal aortic ultrasound suggested a fusiform 4.0 cm lower abdominal aortic aneurysm without atherosclerosis. Noncontrast head CT reveals no evidence for acute intracranial hemorrhage or mass effect. ASSESSMENT: 1. Altered mental status of unspecified etiology. The patient will be admitted as observation status and placed on telemetry monitoring. He has a known history of seizure disorder with last documented seizure in August 2019, compliant on initiated Dilantin 100 mg t.i.d. Dilantin levels were therapeutic. We will continue to monitor for any breakthrough seizures. We will obtain an MRI brain without contrast to evaluate for any possible stroke and a history of transient ischemic attack. We will consult Neurology for further evaluation. Unclear if the patient's current symptoms are progression of possible underlying dementia. We will start on IV fluids with dextrose due to chronic alcohol dependence history. We will obtain a.m. chemistries with magnesium and check the TSH and thiamine levels to evaluate for any nutritional deficiencies. No obvious signs of infection. We will consult PT and OT and we will need Social Service evaluation for safe discharge planning. 2. Dizziness of unspecified etiology. Consult PT and OT. Check MRI brain without contrast to evaluate for stroke. 3. Anorexia of unspecified etiology. Start IV fluids with dextrose. Encourage oral dietary intake. Supplements may be necessary. 4. History of transient ischemic attack. Continue oral aspirin for secondary stroke prevention. Home medications will need to be appropriate for reconcile. 5. Hypertension, benign. 6. History of abdominal aortic aneurysm. Most recent abdominal sonogram with 4.0 cm fusiform aneurysm noted. 7. History of prior nicotine dependence. 8. Chronic alcohol dependence. The patient drinks 4 to 5 beers on an almost daily basis, but denies any signs of alcohol withdrawal. 9. Deep venous thrombosis prophylaxis, Lovenox. 10. Disposition: Telemetry observation status. 11. Code status: Unspecified. The patient will be maintained a full code at this time. He states he does not have any family members and unclear who his surrogate decision maker would be. The patient is seen and examined on 10/23/2019. Job ID: [id number]
[2019-10-24] MEDS: Dextrose 5 %-0.45 % NaCl 1,000 ML IV SCH ×3 (01:15→12:40)
[2019-10-24 05:07] LABS: Anion Gap 8 mmol/L (10-20); BUN (Urea Nitrogen) 6 mg/dL (8.4-25.7); Calc. Creatinine Clearance 83 mL/min (70-130); Calcium 9.2 mg/dL (7.8-10.44); Carbon Dioxide 29 mmol/L (23-31); Chloride 99 mmol/L (98-107); Estimated GFR-MDRD Greater than 90; Glucose 101 mg/dL (83-110); Potassium 4.3 mmol/L (3.5-5.1); Sodium 132 mmol/L (136-145)
[2019-10-24] MEDS ORDERED: Amlodipine 5 MG TAB PO SCH (09:00)
--- NOTE | 2019-10-24 09:36 | MRI ---
EXAM: MRI Brain WO Con PROVIDED CLINICAL HISTORY: Altered mental status COMPARISON: 06/12/2018 FINDINGS: Again noted is increased FLAIR and T2-weighted signal intensity seen within the periventricular white matter which is nonspecific but likely reflective of chronic small vessel ischemic changes which have not progressed from prior exam. A small linear focus of increased T2-weighted signal intensity i s seen in the left cerebellar hemisphere related to a tiny remote infarction. There is no evidence of an acute infarction. Cerebral and cerebellar volume loss is again present. The ventricular system is normal in size, shape , and position for the degree of sulcal atrophy. Appropriate flow voids are again seen in the large intracranial vessels at the skull base. A prior CT angiogram of the head on 06/12/2018 did demonstrate what appeared to be stenosis involving the right M1 segment of the middle cerebral artery. However, this is not apparent on this exam as this st udy is not tailored for evaluation of the intracranial vessels. There is mucosal thickening again seen diffusely throughout the paranasal sinuses which was also pres ent on the prior exam. Mastoid effusions on the left are again seen and to a lesser extent on the right. There has been no significant interval change when compared to the prior exam. IMPRESSION: 1. Stable MRI of brain without evidence of an acute intracranial abnormality demonstrated. 2. Findings again likely reflective of chronic small vessel ischemic changes. 3. Cerebral and cerebellar volume loss. 4. Pansinus disease. 5. Mastoid effusions bilaterally greater on the left.
[2019-10-24] MEDS: Enoxaparin Sodium 40 MG/0.4 ML SYRINGE SC SCH (09:45)
[2019-10-24] MEDS: Loratadine 10 MG TAB PO SCH (09:45)
[2019-10-24] MEDS: Thiamine 100 MG TAB PO SCH (09:45)
[2019-10-24] MEDS: Aspirin 325 mg Enteric Coated Tablet PO SCH (09:45)
--- NOTE | 2019-10-24 18:25 | PDOC.HOSPP ---
- Subjective Encounter Date: 10/24/19 Encounter Time: 18:20 Subjective: f/u for AMS, dizziness, seizure disorder on chronic Dilantin. MRI brain negative for acute infarct but shows pansinusitis. Feels "foggy" in the head with some pain behind the eyes. - Objective Vital Signs & Weight: Vital Signs (12 hours) Temp Pulse Pulse Pulse Resp BP BP 10/24/19 17:30 60 56 L 142/85 H 10/24/19 15:15 98.2 F 60 16 10/24/19 11:00 98.7 F 59 L 12 10/24/19 09:45 55 L 133/57 L 10/24/19 07:34 97.8 F 55 L 20 BP BP Pulse Ox 10/24/19 17:30 143/74 H 10/24/19 15:15 142/82 H 97 10/24/19 11:00 122/77 97 10/24/19 09:45 10/24/19 07:34 133/67 98 Weight Weight 148 lb 9.6 oz Result Diagrams: 10/24/19 04:38 Additional Labs: Laboratory Tests 10/24/19 10/24/19 04:38 11:56 TSH 3rd Generation 6.8926 H Phenytoin 9.6 L Radiology Reviewed by me: Yes (MRI brain - pansinus disease, no acute infarct) EKG Reviewed by me: Yes (Tele - SR) Hospitalist ROS - Medication Medications: Active Medications Generic Name Dose Route Start Last Admin Trade Name Freq PRN Reason Stop Dose Admin Acetaminophen 650 mg 10/23/19 23:17 10/24/19 12:39 Tylenol PO 650 mg Q4H PRN Administration Headache/Fever/Mild Pain (1-3) Aspirin 325 mg 10/24/19 09:00 10/24/19 09:45 Ecotrin PO 325 mg DAILY JD Administration Enoxaparin Sodium 40 mg 10/24/19 09:00 10/24/19 09:45 Lovenox SC 40 mg 0900 JD Administration Dextrose/Sodium Chloride 1,000 mls @ 100 mls/hr 10/23/19 23:45 10/24/19 12:40 D5 1/2 Ns IV 1,000 mls .Q10H JD Administration Loratadine 10 mg 10/24/19 09:00 10/24/19 09:45 Claritin PO 10 mg DAILY JD Administration Metoprolol Succinate 75 mg 10/24/19 09:00 10/24/19 09:45 Toprol Xl PO 75 mg DAILY JD Administration Thiamine HCl 100 mg 10/24/19 09:00 10/24/19 09:45 Thiamine PO 100 mg DAILY JD Administration - Exam General Appearance: NAD, awake alert Eye: PERRL, anicteric sclera ENT: normocephalic atraumatic, no oropharyngeal lesions Neck: supple, symmetric, no JVD, no thyromegaly, no lymphadenopathy Heart: RRR, no murmur, no gallops, no rubs, normal peripheral pulses Respiratory: CTAB, no wheezes, no rales, no ronchi, normal chest expansion Gastrointestinal: soft, non-tender, non-distended, normal bowel sounds, no palpable masses Extremities: no cyanosis, no clubbing, no edema Skin: normal turgor, no lesions Neurological: cranial nerve grossly intact, no new deficit Musculoskeletal: normal tone, normal strength, no muscle wasting Psychiatric: normal affect, A&O x 3 Hosp A/P (1) Seizures Code(s): R56.9 - UNSPECIFIED CONVULSIONS Status: Chronic Plan: Dilantin 200mg BID, EEG pending, Neurology consult appreciated (2) Metabolic encephalopathy Code(s): G93.41 - METABOLIC ENCEPHALOPATHY Status: Acute Plan: Likely multifactorial, no acute CVA identified, likely underlying metabolic process (3) Pansinusitis Code(s): J32.4 - CHRONIC PANSINUSITIS Status: Acute Qualifiers: Chronicity: subacute Qualified Code(s): J01.40 - Acute pansinusitis, unspecified Plan: Start Augmentin 875mg BID, Flonase 2 sprays in each nares daily, Zyrtec 10mg daily (4) Dizziness Code(s): R42 - DIZZINESS AND GIDDINESS Status: Acute Plan: Likely multifactorial, supportive mgmt (5) Visual disturbance Code(s): H53.9 - UNSPECIFIED VISUAL DISTURBANCE Status: Acute Plan: Likely multifactorial including pansinusitis, ? Macular degeneration - Plan continue antibiotics, PT/OT, social services specialist, out of bed/ambulate, DVT proph w/ SCDs Stable currently Dilantin increased 200mg BID EEG pending OOB with PT Start Augmentin 875mg BID Start Flonase/Zyrtec AM lab: FT4, BMP Likely home in 24h
[2019-10-24] MEDS ORDERED: Cetirizine HCl 10 MG TAB PO SCH (19:00)
[2019-10-24] MEDS: Amoxicillin/Potassium Clav 875 MG TAB PO SCH (20:58)
[2019-10-24] MEDS ORDERED: Famotidine 20 MG TAB PO SCH (21:00)
[2019-10-24] MEDS ORDERED: Atorvastatin Calcium 20 MG TAB PO SCH (21:00)
[2019-10-25 05:17] LABS: Anion Gap 12 mmol/L (10-20); BUN (Urea Nitrogen) 6 mg/dL (8.4-25.7); Calc. Creatinine Clearance 83 mL/min (70-130); Calcium 8.8 mg/dL (7.8-10.44); Carbon Dioxide 25 mmol/L (23-31); Chloride 102 mmol/L (98-107); Estimated GFR-MDRD Greater than 90; Glucose 83 mg/dL (83-110); Potassium 4.5 mmol/L (3.5-5.1); Sodium 134 mmol/L (136-145)
[2019-10-25 08:40] VITALS: BP 122/78; TEMP 99
[2019-10-25] MEDS: Enoxaparin Sodium 40 MG/0.4 ML SYRINGE SC SCH (08:48)
[2019-10-25] MEDS: Aspirin 325 mg Enteric Coated Tablet PO SCH (08:49)
[2019-10-25] MEDS: Amoxicillin/Potassium Clav 875 MG TAB PO SCH (08:49)
[2019-10-25] MEDS: Thiamine 100 MG TAB PO SCH (08:49)
[2019-10-25] MEDS: Loratadine 10 MG TAB PO SCH (08:49)
[2019-10-25] MEDS ORDERED: Amlodipine 5 MG TAB PO SCH (09:00)
[2019-10-25] MEDS ORDERED: Rosuvastatin 10 MG TAB PO SCH (09:00)
[2019-10-25] MEDS ORDERED: Loratadine 10 MG TAB PO SCH (09:00)
[2019-10-25] MEDS ORDERED: Fluticasone Propionate Nasal Spray 16 gm Bottle NASAL SCH (09:00)
[2019-10-25] MEDS: Dextrose 5 %-0.45 % NaCl 1,000 ML IV SCH (10:43)
--- NOTE | 2019-10-25 12:47 | DIS ---
DATE OF ADMISSION: 10/23/2019 DATE OF DISCHARGE: 10/25/2019 DIAGNOSES AT THE TIME OF DISCHARGE: 1. Seizures. 2. Metabolic encephalopathy. 3. Pansinusitis. 4. Dizziness. 5. Visual disturbance. HOSPITAL COURSE: The patient is a 69-year-old male, who was admitted to the hospital with altered mental status and confusion. Apparently, he had some breakthrough seizures around and was restarted on Dilantin 100 mg 3 times a day and he was referred by his primary care physician's office to the emergency room in [place] after he showed up in the office without any appointment with concerns for altered mental status and confusion. Noncontrast head CT done in [place] ER was unremarkable. His chemistry, CBC, and Dilantin level were also unremarkable. Abdominal sonogram suggested 4.0 cm fusiform abdominal aortic aneurysm without atherosclerosis or other acute abnormality. The patient was transferred to [facility] for further evaluation and recommendation as recommended observation and admission. Apparently, he had some difficulty in speech which was acknowledged for the past 4 to 5 days. He felt unsteady and dizzy and had broken speech. This was going on from the time of . He was evaluated in the emergency room and got admitted for further evaluation. His Dilantin dose was increased to 100 mg tablets two tablets twice a day. He was given IV fluids. His mental status improved during this hospitalization. He had MRI of the brain done which showed chronic small-vessel ischemic changes and cerebral and cerebellar volume loss along with pansinus disease, but there was no any acute intracranial abnormality. He is doing well. His blood pressure is 122/78, temperature is 99, pulse is 70, respirations 18, O2 saturation 97% on room air. Physical examination is unremarkable and his mental condition is back to normal. He is able to ambulate. He is discharged home in good condition with recommendation to stay on heart healthy diet. ACTIVITIES: As tolerated. He was told not to drive his car until he is seen and cleared by his primary care physician. MEDICATIONS: At the time of discharge; 1. Dilantin 100 mg tablets, two tablets twice a day. 2. Rosuvastatin 10 mg at bedtime. 3. Metoprolol succinate 75 mg once a day. 4. Loratadine 10 mg once a day. 5. Fluticasone propionate one spray to each nostril once a day. 6. Augmentin 875 mg twice a day for the next 14 days. 7. Amlodipine 7.5 mg once a day. FOLLOWUP: He is going to follow up with primary care physician in 1 week. ADDENDUM: The patient had ultrasound of his abdomen done, which showed AAA, which was measured at 4 cm, and this requires followup in the future with imaging to make sure this abdominal aortic aneurysm is not growing to the point that it has to be repaired. Job ID: [id number]
--- NOTE | 2019-10-26 10:07 | EEG ---
Referring Physician: Xiomara MONTENEGRO EEG # 20-18 TEST TYPE: ROUTINE PORTABLE INPATIENT REPORT: AN EEG USING THE INTERNATIONAL TEN-TWENTY SYSTEM OF ELECTRODE PLACEMENT WAS PERFORMED. The waking background is a medium amplitude 9 hertz alpha frequency. The patient was awake throughout the study. Photic stimulation was unremarkable. No epileptiform features were present. IMPRESSION: THIS IS A NORMAL AWAKE EEG. Snake Charmer: AMIE Power Tong Operator: [email or web address] NEWELL
== END 2019-10-25 12:10 | disposition home or self-care (01) ==
LOC: ERS 18:35 → 2SE 23:26
PROVIDERS: ADMIT Hospitalist; ATTEND Hospitalist
DX: G93.41 Metabolic encephalopathy (principal); G40.909 Epilepsy, unspecified, not intractable, without status epilepticus; J01.40 Acute pansinusitis, unspecified; R42 Dizziness and giddiness; H53.9 Unspecified visual disturbance; I10 Essential (primary) hypertension; I71.4 Abdominal aortic aneurysm, without rupture; E78.5 Hyperlipidemia, unspecified; K21.9 Gastro-esophageal reflux disease without esophagitis; F10.20 Alcohol dependence, uncomplicated; R63.0 Anorexia; Z68.21 Body mass index [BMI] 21.0-21.9, adult; Z79.899 Other long term (current) drug therapy; Z86.73 Personal history of transient ischemic attack (TIA), and cerebral infarction without residual deficits; Z87.891 Personal history of nicotine dependence; Z88.2 Allergy status to sulfonamides; Z88.8 Allergy status to other drugs, medicaments and biological substances
CPT/HCPCS: 36415; 70551; 80048; 80185; 84425; 84439; 84443; 93005; 95816; 95819; 96360; 96361; 96372; G0378; J1650

== ENCOUNTER 2020-04-17 10:03 | Outpatient (CLI) | payer MEDICARE ==
--- NOTE | 2020-04-17 13:29 | PET ---
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 Axial SPECT of brain performed. Noncontrast CT performed. CT-SPECT fusion images evaluated. FINDINGS: There is fairly symmetrical distribution of FDG in the cerebral cortices and basal ganglia, and thala mi. There is diffuse brain parenchymal volume loss, not unusual for age. Ventriculomegaly is on the basis of parenchymal volume loss. IMPRESSION: Negative.
== END 2020-04-17 10:04 | disposition home or self-care (01) ==
LOC: PET 10:03
PROVIDERS: ATTEND Psychiatry & Neurology Neurology
DX: G31.84 Mild cognitive impairment of uncertain or unknown etiology (principal); G40.209 Localization-related (focal) (partial) symptomatic epilepsy and epileptic syndromes with complex partial seizures, not intractable, without status epilepticus
CPT/HCPCS: 78803; A9552